=== PATIENT | female | born 1985 | race Caucasian/White ===

== ENCOUNTER 2023-10-26 20:42 | Emergency (ER) | payer MEDICAID, OTHER ==
[~2023-10-26] VITALS: Ht 170.2 cm; Wt 70.0 kg
[2023-10-26 20:48] VITALS: O2SAT 99
[2023-10-26] MEDS: KETOROLAC 60MG/2ML VIAL IM ONE (22:00)
[2023-10-26] MEDS: ACETAMINOPHEN 325MG TABLET PO ONE (22:00)
[2023-10-26] MEDS: METHOCARBAMOL 500MG TABLET PO ONE (22:00)
[2023-10-26 23:16] LABS: HCG SCREEN NEGATIVE
[2023-10-26] MEDS: MORPHINE SULFATE 4 MG/ML INJ (FOR IV/IM USE) IM NR (23:45)
[2023-10-27 02:51] LABS: BASOPHILS % 0.4 % (0.0-2.0); EOSINOPHILS % 0.3 % (0.0-5.0); HEMATOCRIT. 39.3 % (36.0-48.0); HEMOGLOBIN. 13.1 g/dL (12.0-16.0); LYMPHOCYTES % 19.9 % (20.0-50.0); MEAN CORPUSCULAR HEMOGLOBIN 30.7 pg (28.0-32.0); MEAN CORPUSCULAR HGB CONC 33.4 g/dL (31.0-37.0); MEAN CORPUSCULAR VOLUME 92.1 fL (81.0-99.0); MEAN PLATELET VOLUME 9.5 fl (7.4-10.4); MONOCYTES % 5.9 % (2.0-8.0); NEUTROPHILS % 73.5 % (40.0-76.0); PLATELET 200 x1000/uL (130-400); RED BLOOD CELL COUNT 4.27 mill/uL (4.2-5.4); RED CELL DISTRIBUTION WIDTH 12.5 % (11.6-14.6); WHITE BLOOD COUNT 7.2 x1000/uL (4.5-11.0)
[2023-10-27 03:06] LABS: ALANINE AMINOTRANSFERASE 19 IU/L (10-49); ALBUMIN 4.3 g/dL (3.2-4.8); ASPARTATE AMINOTRANSFERASE 27 IU/L (<34); CALCIUM 8.4 mg/dL (8.7-10.4); CARBON DIOXIDE 28 mEq/L (21-32); CHLORIDE 108 mEq/L (98-107); CREATININE 0.8 mg/dL (0.6-1.0); GLUCOSE 116 mg/dL (70-105); POTASSIUM 3.9 mEq/L (3.5-5.1); PROTEIN TOTAL 6.5 g/dL (6.0-8.3); SODIUM 141 mEq/L (136-145); UREA NITROGEN BLOOD 10 mg/dL (9-23)
[2023-10-27] MEDS: MORPHINE SULFATE 4 MG/ML INJ (FOR IV/IM USE) IV ONE (03:39)
[2023-10-27] MEDS: LACTATED RINGERS 1,000 ML IV SCH (03:49)
[2023-10-27] MEDS ORDERED: DIPHENHYDRAMINE 50MG/ML VIAL IV PRN (09:45)
[2023-10-27] MEDS ORDERED: ACETAMINOPHEN 325MG TABLET PO PRN (09:45)
[2023-10-27] MEDS ORDERED: ONDANSETRON HCL 4MG/2ML INJ IV PRN (09:45)
[2023-10-27] MEDS ORDERED: IPRATROPIUM/ALBUTEROL 0.5-3(2.5)MG/3ML NEB HHN PRN (09:45)
[2023-10-27] MEDS ORDERED: CLONIDINE 0.1MG TABLET PO PRN (09:45)
[2023-10-27 09:51] VITALS: BP 112/75; PULSE 74; RESP 20; TEMP 98.4
== END 2023-10-27 10:20 | disposition short-term general hospital (02) ==
LOC: ER 20:42 → EDBEDREQTM 10-27 05:24 → EDBEDREQ 10-27 05:24 → CANBEDREQ 10-27 09:45 → ER 10-27 10:20
DX: M54.50 Low back pain, unspecified (principal); R55 Syncope and collapse; Z98.890 Other specified postprocedural states
CPT/HCPCS: 84703; 96372; 99285; 80053; 85025; 36415; 93005; 96361; 96374; J1885; J2270; Z7610 ×4